=== PATIENT | male | born 1935 ===

== ENCOUNTER 2018-02-27 09:30 | Day surgery (SDC) | payer MEDICARE, OTHER ==
[2018-02-15 12:05] VITALS: BMI 24.9
[2018-02-27] MEDS ORDERED: EPINEPHrine 1 mg/ml (1:1000) Inj ONE (10:06)
[2018-02-27] MEDS ORDERED: Maxitrol Opht Susp ONE (10:06)
[2018-02-27] MEDS ORDERED: Tetracaine 0.5% Ophth 2 ML BOTTLE ONE (10:07)
[2018-02-27] MEDS ORDERED: CA CL/K CL/NA CL 500 ML IR ONE (10:07)
[2018-02-27] MEDS ORDERED: Pilocarpine 1% Opht Soln ONE (10:07)
[2018-02-27] MEDS ORDERED: Lidocaine 1% 20 MG/2 ML PF AMP ONE (10:07)
[2018-02-27] MEDS ORDERED: Chondroitin/Hyaluronate Opth Syringe KIT (0.55 ml-0.5 ml) IO ONE ×2 (10:08→15:55)
[2018-02-27] MEDS ORDERED: Carbachol 0.01% IO ONE (10:08)
[2018-02-27] MEDS ORDERED: Povidone Iodine 5% Opht SOLUTION ONE (10:08)
[2018-02-27] MEDS ORDERED: STERILE IRRIGATING SOLUTION 15 ML IR ONE (10:08)
[2018-02-27 11:14] VITALS: RESP 18
[2018-02-27] MEDS ORDERED: Hyaluronidase 200 UNITS/ML VIAL ONE (14:52)
[2018-02-27] MEDS ORDERED: Mepivacaine HCl 2% (20ml) Inj ONE (14:52)
[2018-02-27] MEDS ORDERED: Bupivacaine HCl 0.25% PF (30 ml) Inj ONE (14:52)
[2018-02-27] MEDS ORDERED: Midazolam 2 MG/2 ML VIAL ONE (15:01)
[2018-02-27] MEDS ORDERED: Lactated Ringer's 1,000 ML IV ONE (15:02)
[2018-02-27] MEDS ORDERED: Tetracaine 0.5% Ophth 2 ML BOTTLE OD ONE (15:11)
[2018-02-27] MEDS ORDERED: Povidone Iodine 5% Opht SOLUTION OD ONE (15:13)
[2018-02-27] MEDS ORDERED: BSS 15 ML SOL IR ONE (15:25)
[2018-02-27] MEDS ORDERED: Lidocaine 1% w Epi 1:100,000 Inj ONE (16:09)
[2018-02-27 17:06] VITALS: O2SAT 97
[2018-02-27 17:08] VITALS: BP 148/77; PULSE 74; TEMP 97.6
--- NOTE | 2018-04-10 18:53 | OP ---
PROCEDURE DATE: 02/27/2018 SURGEON: BANDAR WESTBROOK MD ANESTHESIOLOGIST: LUCAS QUINTERO MD ANESTHESIA: LOCAL / IV SEDATION PREOPERATIVE DIAGNOSIS: UNCONTROLLED GLAUCOMA POSTOPERATIVE DIAGNOSIS: SAME OPERATION: TRABECULECTOMY OF THE RIGHT EYE. PREPARATION AND PROCEDURE: The patient was brought to the Operative Suite and after facial akinesia and retrobulbar block were induced, the patient was prepped and draped in the usual manner for sterile ophthalmic surgery. A wire- lid speculum was placed through the belly of the superior rectus muscle for fixation of the globe. At 6 mm posterior to the 12 o'clock position of the cornea, a curvilinear peritomy was performed through bulbar conjunctiva and Tenon's capsule for 8 degrees. The conjunctiva, Tenon's capsule and subconjunctival tissue were reflected anteriorly over the cornea with blunt and sharp dissection using a Tooke knife. Hemostasis was obtained using bipolar cautery. When this was obtained satisfactorily, a 5 mm lamellar scleral triangle was fashioned at the base of the triangle at the surgical sulcus. A # 75 medium [place] blade was employed to delineate the size of the triangular flap. This was done to one half depth of the sclera. The apex of the flap was elevated using a 0.12 micro-forceps and the lamellar flap was initiated with the #75 medium [place] blade. At this point, the #66 [place] blade was employed to continue and terminate the lamellar scleral flap which was done satisfactorily through the surgical sulcus. With the flap being held vertically and a fresh #75 medium [place] blade employed, a horizontal incision from one end to the other at the base of the flap was fashioned through the trabecular meshwork into the anterior chamber. The peripheral iris was noted to prolapse satisfactorily into the wound and a large peripheral iridectomy was fashioned at this time. The iris was noted to retract back into the anterior chamber satisfactorily. A section of the trabecular meshwork and scleral spur measuring 5 mm X 5 mm was excised using a Vannas scissor and 0.12 forceps. This was submitted to Pathology for examination. A #8-0 Vicryl suture was placed at the apex of the flap and this was secured. 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 The pupil was found to constrict and to be round. The conjunctival peritomy and Tenon's capsule were closed in continuous fashion using a #8-0 chromic suture. This was done satisfactorily and no wound leaks were noted. Twenty mg of A-metha was injected through the lower lid into the subtenon. The #4-0 superior rectus suture was removed. Maxitrol drops were applied into the eye. A patch and shield were applied. POSTOPERATIVE CONDITION: The patient was brought to the Post anesthesia Recovery area with stable vital signs. DBANDAR DENOTN MD
== END 2018-02-27 17:05 | disposition home or self-care (01) ==
LOC: H.OPSURG 09:30
PROVIDERS: ATTEND Ophthalmology
DX: H40.9 Unspecified glaucoma (principal); E11.9 Type 2 diabetes mellitus without complications; I25.10 Atherosclerotic heart disease of native coronary artery without angina pectoris; I10 Essential (primary) hypertension
CPT/HCPCS: 66170; 82948; J2250; J3010; J3470; J7030; J7120; J9280